=== PATIENT | female | born 1950 | race Caucasian/White ===

== ENCOUNTER 2019-12-05 08:19 | Day surgery (SDC) | payer MEDICARE, OTHER | END 2019-12-05 23:09 | disposition home or self-care (01) | LOC: RAD 08:19 | DX: M47.27 Other spondylosis with radiculopathy, lumbosacral region (principal); I10 Essential (primary) hypertension; E78.00 Pure hypercholesterolemia, unspecified; D49.7 Neoplasm of unspecified behavior of endocrine glands and other parts of nervous system; D48.5 Neoplasm of uncertain behavior of skin; M79.671 Pain in right foot; M79.672 Pain in left foot; Z79.899 Other long term (current) drug therapy; Z87.891 Personal history of nicotine dependence; Z91.013 Allergy to seafood ==

== ENCOUNTER 2020-04-07 01:10 | Emergency (ER) | payer MEDICARE, OTHER ==
[~2020-04-07] VITALS: Ht 167.6 cm; Wt 72.6 kg
[~2020-04-07 01:10] MED LIST: ATOR10 PO; CLIMARA1 EACH TD; Isosorbide Mono30 MG PO; METOPROLOL SUCC25 MG PO; Motion Sickness25 M1 PO; ONDA4ODT MM; OXYC5 PO; Omeprazole20 M1 PO; TRAZ50 PO
[2020-04-07] MEDS ORDERED: CYCL10 PO (01:49)
== END 2020-04-07 02:10 | disposition home or self-care (01) ==
LOC: ER 01:10
DX: S29.012A Strain of muscle and tendon of back wall of thorax, initial encounter (principal); G89.29 Other chronic pain; Z91.013 Allergy to seafood; Z79.899 Other long term (current) drug therapy; X50.1XXA Overexertion from prolonged static or awkward postures, initial encounter; Y93.89 Activity, other specified
CPT/HCPCS: 96374; 99282-25; A9270; J3010

== ENCOUNTER 2023-12-07 06:33 | Emergency (ER) | payer MEDICARE, OTHER ==
[~2023-12-07] VITALS: Ht 172.7 cm; Wt 72.6 kg
[~2023-12-07 06:33] MED LIST changes: +CYCL10 PO
[2023-12-07] MEDS ORDERED: Lidocaine 4% 1 Patch TOP ONE (08:35)
[2023-12-07] MEDS ORDERED: Methocarbamol 500 MG Tab PO ONE (08:35)
[2023-12-07] MEDS ORDERED: HYDROcodone 5-APAP 325 TAB PO ONE (08:35)
[2023-12-07] MEDS ORDERED: Ketorolac Tromethamine 30mg Vial IM ONE (08:35)
[2023-12-07] MEDS ORDERED: Naloxone HCL 4 MG SPRAY (1 UNIT) ONE ×2 (09:35)
[2023-12-07] MEDS ORDERED: Naloxone HCl 0.4MG / ML 1ML Vial ONE (09:39)
[2023-12-07] MEDS ORDERED: NS 1,000 ML IV ONE (09:39)
[2023-12-07] MEDS ORDERED: Naloxone HCl 0.4MG / ML 1ML Vial IV ONE (09:40)
[2023-12-07 11:13] LABS: Albumin, Blood 2.3 g/dL (3.4-5.0); Albumin/Globulin Ratio 0.9 (0.8-1.8); Bilirubin, Total 0.8 mg/dL (0.1-1.0); Bun/Creatinine Ratio 11.7 (12.0-20.0); Calcium, Blood 7.5 mg/dL (8.5-10.1); Creatinine, Blood 0.86 mg/dL (0.40-1.00); Globulin, Blood 2.7 g/dL (2.2-4.0); Potassium, Blood 3.9 mmol/L (3.5-5.5)
[2023-12-07 11:48] LABS: BASOPHILS ABSOLUTE AUTO 0.04 K/mm3 (0.00-0.23); BASOPHILS PERCENT AUTO 1 % (0-2); EOSINOPHILS ABSOLUTE AUTO 0.12 K/mm3 (0.00-0.68); EOSINOPHILS PERCENT AUTO 2 % (0-6); Hematocrit 35.9 % (33.0-51.0); Hemoglobin 11.8 g/dL (11.5-16.0); IMMATURE GRAN ABSOLUTE AUTO 0.02 K/mm3 (0.00-0.10); IMMATURE GRAN PERCENT AUTO 0 % (0-1); LYMPHOCYTES ABSOLUTE AUTO 1.79 K/mm3 (0.84-5.20); LYMPHOCYTES PERCENT AUTO 23 % (21-46); MONOCYTES ABSOLUTE AUTO 0.68 K/mm3 (0.16-1.47); MONOCYTES PERCENT AUTO 9 % (4-13); Mean Corpuscular HGB Conc 32.9 g/dL (31.5-36.5); Mean Corpuscular Volume 91 fL (80-100); Mean Platelet Volume 11.7 fL (9.1-12.4); NEUTROPHILS ABSOLUTE AUTO 5.11 K/mm3 (1.96-9.15); NEUTROPHILS PERCENT AUTO 66 % (41-73); Platelet Count 195 K/mm3 (150-400); RDW Coefficient Variation 12.7 % (11.7-14.2); RDW Standard Deviation 42.5 fL (35.1-46.3); Red Blood Cell Count 3.93 M/mm3 (3.80-5.20); White Blood Cell Count 7.76 K/mm3 (4.00-11.30)
[2023-12-07] MEDS ORDERED: LIDO700A20 TOP (12:06)
[2023-12-07] MEDS ORDERED: IBUP800 PO (12:06)
[2023-12-07] MEDS ORDERED: Robaxin750 MG PO (12:06)
[2023-12-07 12:30] VITALS: BP 182/84
[2023-12-07] MEDS ORDERED: RX Prepack 2 Sprays Naloxone HCL 4 MG/SPRAY UD ONE (12:35)
== END 2023-12-07 12:30 | disposition home or self-care (01) ==
LOC: ER 06:33
PROVIDERS: Emergency Medicine
DX: M54.2 Cervicalgia (principal); T50.7X5A Adverse effect of analeptics and opioid receptor antagonists, initial encounter; H81.09 Meniere's disease, unspecified ear
CPT/HCPCS: 80053; 85025; 93005; 93010; 93246; 96361; 96372-59; 96374; 99284-25; A9270; J1885; J2310; J7030